=== PATIENT | female | born 1970 | race Asian ===

== ENCOUNTER 2023-02-15 23:42 | Emergency (ER) | payer SELFPAY ==
[~2023-02-15] VITALS: Ht 165.1 cm; Wt 79.4 kg
[2023-02-16 00:01] VITALS: O2SAT 99
== END 2023-02-16 03:00 | disposition left against medical advice (07) ==
LOC: ER 23:50
DX: S09.90XA Unspecified injury of head, initial encounter (principal); Z53.21 Procedure and treatment not carried out due to patient leaving prior to being seen by health care provider; X58.XXXA Exposure to other specified factors, initial encounter; Y93.89 Activity, other specified; Y92.89 Other specified places as the place of occurrence of the external cause; Y99.8 Other external cause status
CPT/HCPCS: A4606; A4663